=== PATIENT | female | born 1950 | race African-American/Black ===

== ENCOUNTER 2017-02-17 16:10 | Emergency (ER) | payer OTHER ==
[~2017-02-17] VITALS: Ht 157.5 cm; Wt 81.8 kg
[~2017-02-17 16:10] MED LIST: BP MEDS PO
[2017-02-17] MEDS ORDERED: DICL50TA9 PO (16:24)
[2017-02-17] MEDS ORDERED: POTA-9 PO (16:24)
[2017-02-17] MEDS ORDERED: GABA-529 PO (16:24)
[2017-02-17] MEDS ORDERED: FURO40TA5 PO (16:24)
[2017-02-17] MEDS ORDERED: OMEP40CA12 PO (16:24)
[2017-02-17] MEDS ORDERED: TRAM50TA4 PO (16:24)
[2017-02-17] MEDS ORDERED: LOSA50TA37 PO (16:24)
[2017-02-17] MEDS ORDERED: ATOR20TA65 PO (16:24)
[2017-02-17 16:42] LABS: BASOPHILS # (AUTO) 0.03 K/uL (0.00-0.20); BASOPHILS % (AUTO) 0.5 % (0.0-2.0); EOSINOPHILS # (AUTO) 0.65 K/uL (0.00-0.70); EOSINOPHILS % (AUTO) 9.44 % (1.0-6.0); HEMATOCRIT 40.1 % (36-46); HEMOGLOBIN 13.5 g/dL (12.0-16.0); LYMPHOCYTES # (AUTO) 2.8 K/uL (1.0-4.8); LYMPHOCYTES % (AUTO) 40.7 % (22.0-44.0); MEAN CORPUSCULAR HGB CONC 33.7 G/dL (31.0-37.0); MEAN CORPUSCULAR VOLUME 89 fL (80-100); MONOCYTES # (AUTO) 0.8 K/uL (0.1-1.0); MONOCYTES % (AUTO) 11.1 % (2.0-9.0); NEUTROPHILS # (AUTO) 2.6 K/uL (1.8-7.7); NEUTROPHILS % (AUTO) 38.3 % (40.0-70.0); PLATELET COUNT (AUTO) 268 K/uL (150-450); RED CELL DISTRIBUTION WIDTH 13.7 % (11.5-14.5); WHITE BLOOD COUNT (AUTO) 6.9 K/uL (4.5-11.0)
[2017-02-17 17:29] LABS: ANION GAP 6 mmol/L (8-16); CARBON DIOXIDE 32 mmol/L (22-29); CHLORIDE 104 mmol/L (98-107); CREATININE 0.82 mg/dL (0.60-1.30); POTASSIUM 3.7 mmol/L (3.5-5.1); SODIUM SERUM 142 mmol/L (136-145); UREA NITROGEN, BLOOD 10 mg/dL (7-18)
[2017-02-17 17:30] LABS: CALCIUM, TOTAL 9.2 mg/dL (8.8-10.5); GLOMERULAR FILTR. RATE CALC > 60 mL/min (>60)
[2017-02-17 17:40] LABS: ALANINE AMINOTRANSFERASE 19 U/L (12-78); ALBUMIN 3.4 g/dL (3.4-5.0); ASPARTATE AMINOTRANSFERASE 23 U/L (15-37); BILIRUBIN,TOTAL 0.2 mg/dL (0.1-1.0); TOTAL PROTEIN, SERUM 7.8 g/dL (6.4-8.2)
[2017-02-17] MEDS ORDERED: KETOROLAC TROMETHAMINE 30 MG/ML VIAL IVP ONE (18:30)
[2017-02-17] MEDS ORDERED: SODIUM CHLORIDE 0.9% 1,000 ML IV ONE (18:30)
[2017-02-17] MEDS ORDERED: SODIUM CHLORIDE 0.9% 100 ML ONE (19:42)
[2017-02-17] MEDS ORDERED: IOVERSOL 350 MG/ML 100 ML VIAL ONE (19:42)
[2017-02-17 22:01] VITALS: BP 130/83
== END 2017-02-17 22:19 | disposition home or self-care (01) ==
LOC: EMS 16:12
DX: J40 Bronchitis, not specified as acute or chronic (principal); I10 Essential (primary) hypertension
CPT/HCPCS: 36415; 71010; 71275; 80053; 84484; 85025; 85379; 93005; 96361; 96374; 99285; J1885; J7030; J7050; Q9967

== ENCOUNTER 2019-05-29 11:25 | Emergency (ER) | payer OTHER ==
[~2019-05-29] VITALS: Ht 165.1 cm; Wt 95.5 kg
[~2019-05-29 11:25] MED LIST changes: +ATOR20TA65 PO; -BP MEDS PO; +DICL50TA9 PO; +FURO40TA5 PO; +GABA-529 PO; +LOSA50TA64 PO; +OMEP40CA12 PO; +POTA-9 PO; +TRAM50TA4 PO
[2019-05-29 11:30] VITALS: BP 151/75
[2019-05-29] MEDS ORDERED: ACETAMINOPHEN 500 MG TABLET PO ONE (12:15)
== END 2019-05-29 13:34 | disposition home or self-care (01) ==
LOC: EMS 11:26
DX: J40 Bronchitis, not specified as acute or chronic (principal); R07.89 Other chest pain; E78.00 Pure hypercholesterolemia, unspecified; I10 Essential (primary) hypertension; Z79.899 Other long term (current) drug therapy

== ENCOUNTER 2024-02-10 17:41 | Emergency (ER) | payer MEDICARE, MEDICAID ==
[~2024-02-10] VITALS: Ht 167.6 cm; Wt 72.7 kg
[~2024-02-10 17:41] MED LIST changes: +DICL50TA10 PO; -DICL50TA9 PO; +LOSA-382 PO; -LOSA50TA64 PO; -OMEP40CA12 PO; +OMEP40CA21 PO; +POTA-203 PO; -POTA-9 PO
[2024-02-10] MEDS ORDERED: ALBU18HF12 IH (18:07)
[2024-02-10] MEDS ORDERED: DONE-51 PO (18:07)
[2024-02-10] MEDS ORDERED: HYDR25TA2 PO (18:07)
[2024-02-10] MEDS ORDERED: SERT-158 PO (18:07)
[2024-02-10] MEDS ORDERED: ATOR40TA28 PO (18:07)
[2024-02-10] MEDS ORDERED: FLUT16SP NASAL (18:07)
[2024-02-10] MEDS ORDERED: FLUT10.67 IH (18:07)
[2024-02-10 18:30] LABS: BASOPHILS % (AUTO) 0.6 % (0.0-2.0); EOSINOPHILS % (AUTO) 2.7 % (1.0-6.0); HEMATOCRIT 45.5 % (36-46); LYMPHOCYTES # (AUTO) 1.6 K/uL (1.0-4.8); LYMPHOCYTES % (AUTO) 34.7 % (22.0-44.0); MEAN CORPUSCULAR HEMOGLOBIN 29.6 pg (26.0-34.0); MEAN CORPUSCULAR HGB CONC 32.9 G/dL (31.0-37.0); MEAN CORPUSCULAR VOLUME 90 fL (80-100); MONOCYTES # (AUTO) 0.4 K/uL (0.1-1.0); MONOCYTES % (AUTO) 7.5 % (2.0-9.0); NEUTROPHILS # (AUTO) 2.6 K/uL (1.8-7.7); NEUTROPHILS % (AUTO) 54.5 % (40.0-70.0); PLATELET COUNT (AUTO) 355 K/uL (150-450); RED BLOOD CELL COUNT(AUTO) 5.06 MIL/uL (4.00-5.20); RED CELL DISTRIBUTION WIDTH 13.4 % (11.5-14.5); WHITE BLOOD COUNT (AUTO) 4.7 K/uL (4.5-11.0)
[2024-02-10 18:38] LABS: ANION GAP 7 mmol/L (8-16); CALCIUM, TOTAL 10.1 mg/dL (8.8-10.5); CARBON DIOXIDE 32 mmol/L (22-29); CHLORIDE 102 mmol/L (98-107); CREATININE 0.72 mg/dL (0.60-1.30); GLOMERULAR FILTR. RATE CALC > 60 mL/min (>60); GLUCOSE,RANDOM 137 mg/dL (70-110); POTASSIUM 4.2 mmol/L (3.5-5.1); SODIUM SERUM 141 mmol/L (136-145); UREA NITROGEN, BLOOD 10 mg/dL (7-18)
[2024-02-10 21:13] LABS: TROPONIN I-HIGH SENSITIVITY 7 ng/L (<51)
[2024-02-10] MEDS: ONDANSETRON HCL 4 MG/2 ML VIAL IVP ONE (21:48)
[2024-02-10] MEDS: SODIUM CHLORIDE 0.9% 1,000 ML IV ONE (21:48)
[2024-02-10 22:03] LABS: LIPASE 40 U/L (16-77)
[2024-02-10] MEDS ORDERED: ONDA-104 PO (23:24)
[2024-02-11 00:18] VITALS: BP 143/77; PULSE 69; RESP 18; TEMP 97.9; O2SAT 98
== END 2024-02-11 00:36 | disposition home or self-care (01) ==
LOC: EMS 17:44
DX: R11.2 Nausea with vomiting, unspecified (principal); R53.83 Other fatigue; I10 Essential (primary) hypertension; E78.00 Pure hypercholesterolemia, unspecified; Z79.899 Other long term (current) drug therapy; Z79.51 Long term (current) use of inhaled steroids
CPT/HCPCS: 80048; 83690; 84484; 85025; 93005; 96361; 96374; 99284; J2405; J7030; 36415-L1; 36415-TC